=== PATIENT | female | born 1945 | race Caucasian/White ===

== ENCOUNTER → 2020-05-20 | Outpatient (CLI) | payer MEDICARE ==
[2020-05-21 00:07] LABS: HEMOGLOBIN A1C 10.1 % (4.8-5.6)
== END ==
LOC: LAB 11:10
PROVIDERS: ATTEND Psychiatry & Neurology Neurology with Special Qualifications in Child Neurology
DX: E11.42 Type 2 diabetes mellitus with diabetic polyneuropathy (principal); G57.11 Meralgia paresthetica, right lower limb; R20.0 Anesthesia of skin; R53.1 Weakness
CPT/HCPCS: 82607; 82746; 83036; 84165; 84443; 86038; 86140